=== PATIENT | male | born 1960 | race African-American/Black ===

== ENCOUNTER 2017-08-01 06:13 | Emergency (ER) | payer OTHER ==
[~2017-08-01] VITALS: Ht 175.3 cm; Wt 97.5 kg
[2017-08-01 07:28] VITALS: BP 158/102
[2017-08-01] MEDS ORDERED: methylPREDNISolone SOD SUCC 125 MG/2 ML VL IM ONE (07:45)
== END 2017-08-01 08:13 | disposition home or self-care (01) ==
LOC: ER 06:15
DX: T78.40XA Allergy, unspecified, initial encounter (principal); Z91.013 Allergy to seafood
CPT/HCPCS: 96372; 99283; J2930